=== PATIENT | male | born 1985 | race African-American/Black ===

== ENCOUNTER 2016-09-30 23:59 | Emergency (ER) | payer OTHER ==
--- NOTE | ~2016-09-30 | CR2 ---
[facility] A Service of [facility] RADIOLOGY TEXT RESULTS PATIENT: FRANCISCA NIELSON LOCATION: DAVID : 83 UNIT #: [id number] AGE: [address]: Darnell Ramsey MD SEX: M ORDER DR: [id number] [facility] [address] [place], [place] [address] [id number] MR#: [id number] Acc #: [id number] NAME: FRANCISCA NIELSON : 1985 SEX: M STUDY DATE/TIME: 10/01/2016 0:38 UNIT: DAVID ROOM: STUDY DESCRIPTION: CR Abdomen Acute Series Attending Physician: Darnell Ramsey M.D. Ordering Physician: Anastasiya Packer M.D. Primary Care Physician: Jax Rolon M.D. MEDICAL IMAGING REPORT This report is preliminary unless electronic signature is present EXAM Acute abdominal series 10/01/2016 00:38 HISTORY 31-year-old male with abdominal pain on the left upper side for 1-2 days. COMPARISON None. FINDINGS Moderate cardiomegaly with signs of median sternotomy. Pulmonary vascular distribution appears within normal limits and the lungs appear free of acute airspace disease. No pleural effusion or pneumothorax is identified. Limited evaluation of the abdomen secondary to obscuration by body habitus. Nonspecific but not obstructed appearing bowel gas pattern. No gross free intraperitoneal air or pneumatosis identified. No definite organomegaly or abnormal soft tissue calcification is seen. IMPRESSION 1. Mild cardiac enlargement with median sternotomy. 2. No acute findings in the chest or abdomen. Dictated by... Ondina Montelongo M.D. THIS IS AN ELECTRONICALLY VERIFIED REPORT Ondina Montelongo M.D. at 10/06/2016 4:11 PM ZACK/sonido TD: 10/01/2016 07:38 JOB #: [id number] [facility] A Service of [facility] RADIOLOGY TEXT RESULTS PATIENT: FRANCISCA NIELSON LOCATION: [facility] : 83 UNIT #: [id number] AGE: [address]: Darnell Ramsey MD SEX: M ORDER DR: MEDICAL IMAGING REPORT Page 1 of 1 COPY
[~2016-09-30 23:59] MED LIST: CIPRO250 MG PO; INDOMETHACIN50 MG PO; PHENERGAN12.5 MG/SU RC; PREDNISONE10 MG/DOSE PO; TYLENOL WITH C1 EACH PR
[2016-10-01 01:29] LABS: BASOPHIL# 0.2 X10e3 (0-0.3); BASOPHIL% 1.3 % (0-2.5); EOSINOPHIL# 0.1 X10e3 (0-0.7); EOSINOPHIL% 0.7 % (0.0-7.0); HEMATOCRIT 41.2 % (38.0-50.0); HEMOGLOBIN 13.6 gm/dL (13.0-16.0); LYMPHOCYTE# 2.8 X10e3 (1.0-3.5); LYMPHOCYTE% 23.1 % (17.0-45.0); MEAN CELL VOLUME 93.1 FL (83-96); MEAN CORPUSCULAR HEMOGLOBIN 30.8 PG (28-34); MEAN CORPUSCULAR HGB CONC 33.1 g/dL (30-36); MEAN PLATELET VOLUME 7.8 FL (6.5-11.5); MONOCYTE# 0.7 X10e3 (0-1.0); MONOCYTE% 6.1 % (3.0-12.0); NEUTROPHIL# 8.5 X10e3 (1.5-7.1); NEUTROPHIL% 68.8 % (40-75); PLATELET COUNT 352 X10e3 (140-420); RED BLOOD COUNT 4.42 X10e (3.90-5.60); RED CELL DISTRIBUTION WIDTH 14.8 % (11.0-15.5); WHITE BLOOD COUNT 12.3 X10e3 (4.0-10.5)
[2016-10-01 01:31] LABS: DIFF IND NO
[2016-10-01 01:51] LABS: ALBUMIN SERUM 3.7 g/dL (3.5-5.0); BILIRUBIN,TOTAL 0.3 mg/dL (0.2-2.0); BUN/CREATININE RATIO 11.81; CALCIUM SERUM 8.8 mg/dL (8.4-10.2); CREATININE SERUM 1.1 mg/dL (0.6-1.4); GLOM FILT RATE Estimated 101.7 mL/min (>60); POTASSIUM 3.6 mmol/L (3.5-5.1); PROTEIN TOTAL SERUM 7.8 g/dL (6.0-8.3)
[2016-10-01 01:53] LABS: BILIRUBIN, DIRECT 0.1 mg/dL (0.0-0.2); BILIRUBIN,INDIRECT 0.2 mg/dL (0.0-0.9)
[2016-10-01 02:35] LABS: URINE SOURCE CLEAN CATCH
[2016-10-01 02:41] LABS: URINE APPEARANCE CLEAR; URINE BILIRUBIN NEG (NEG); URINE BLOOD NEG (NEG); URINE COLOR YELLOW; URINE GLUCOSE NEG (NEG); URINE KETONE NEG (NEG); URINE LEUKOCYTE ESTERASE NEG (NEG); URINE NITRATE NEG (NEG); URINE PH 5.5 (5-8); URINE PROTEIN NEG (NEG)
[2016-10-01 02:45] LABS: CULTURE INDICATED? NO
== END 2016-10-01 03:10 | disposition home or self-care (01) ==
LOC: CED 23:59
PROVIDERS: Emergency Medicine
DX: K43.9 Ventral hernia without obstruction or gangrene (principal)
CPT/HCPCS: 36415; 74022; 80048; 80076; 81003; 82150; 83690; 85025; 99284